=== PATIENT | female | born 1995 | race Caucasian/White ===

== ENCOUNTER 2017-07-05 21:24 | Emergency (ER) | payer SELFPAY ==
[~2017-07-05] VITALS: Ht 154.9 cm; Wt 45.0 kg
[~2017-07-05 21:24] MED LIST: AMOXICILLIN500 MG PO; AUGMENTIN875TAB PO; BACTRIM DS1 TAB PO; COLON CARE OR; MIRALAX3350 N1 PO; MUPIROCIN2 % EX; NO; PRILOSEC20 MG PO; SPRINTEC 2828 DAY PO; ULTRAM50 M1 PO; XANAX0.25 MG PO
[2017-07-05] MEDS ORDERED: KEFLEX500 MG PO (21:47)
[2017-07-05] MEDS ORDERED: PERCOCET 5/325M1 TAB PO (21:47)
[2017-07-05 21:52] VITALS: BP 120/72
== END 2017-07-05 21:58 | disposition home or self-care (01) | DRG 603 ==
LOC: ED 21:24
DX: L02.31 Cutaneous abscess of buttock (principal); F17.210 Nicotine dependence, cigarettes, uncomplicated

== ENCOUNTER 2020-04-02 | Emergency (ER) | payer BC ==
[~2020-04-02] MED LIST changes: +KEFLEX500 MG PO; +PERCOCET 5/325M1 TAB PO
[2020-04-02] MEDS ORDERED: TRI-PREVIFE1 PO (08:35)
== END 2020-04-02 10:32 | disposition home or self-care (01) | DRG 153 ==
DX: J02.9 Acute pharyngitis, unspecified (principal)